=== PATIENT | female | born 1975 | race African-American/Black ===

== ENCOUNTER 2022-07-05 12:26 | Emergency (ER) | payer OTHER ==
[~2022-07-05] VITALS: Ht 156.2 cm; Wt 62.6 kg
== END 2022-07-05 15:43 | disposition home or self-care (01) ==
LOC: ER 12:26
DX: J84.10 Pulmonary fibrosis, unspecified (principal); U09.9 Post COVID-19 condition, unspecified

== ENCOUNTER 2023-07-30 15:17 | Emergency (ER) | payer OTHER ==
[~2023-07-30] VITALS: Ht 154.9 cm; Wt 62.6 kg
[2023-07-30] MEDS ORDERED: hydrOXYzine PAMOATE 50 MG CAPSULE PO STA (17:46)
[2023-07-30 18:21] LABS: HEMATOCRIT 36.9 % (36.0-45.00); HEMOGLOBIN 11.9 g/dL (12.0-15.00); MEAN CELL VOLUME 82.6 fL (80.00-100.00); MEAN CORPUSCULAR HEMOGLOBIN 26.7 pg (27.00-32.0); MEAN CORPUSCULAR HGB CONC 32.3 g/dl (32.0-36.0); PLATELET COUNT 376 K/uL (150-450); RED BLOOD COUNT 4.46 M/uL (4.00-6.00); RED CELL DISTRIBUTION WIDTH 16.5 % (11.5-14.5)
[2023-07-30 18:41] LABS: CALCIUM 8.9 mg/dL (8.5-10.1); CREATININE SERUM 0.67 mg/dL (0.55-1.02); GFR 93.16; POTASSIUM 3.95 mEq/L (3.5-5.1)
== END 2023-07-30 19:02 | disposition home or self-care (01) ==
LOC: ER 15:18
PROVIDERS: General Practice
DX: I10 Essential (primary) hypertension (principal); Z91.018 Allergy to other foods; F43.10 Post-traumatic stress disorder, unspecified